=== PATIENT | female | born 1960 | race Caucasian/White ===

== ENCOUNTER 2022-11-24 10:23 | Day surgery (SDC) | payer BC ==
[2022-11-24] MEDS ORDERED: Ringers Lactate 1,000 ML IV ONE (10:45)
[2022-11-24] MEDS ORDERED: propofoL 200 MG/20 ML VIAL IV ONE ×3 (12:14→12:45)
[2022-11-24] MEDS ORDERED: LIDOCAINE 2% MPF 5 ML VIAL ONE (12:15)
[2022-11-24] MEDS ORDERED: MIDAZOLAM HCL 2 MG/2 ML INJ ONE (12:39)
[2022-11-24] MEDS ORDERED: LIDOCAINE 1% MPF 5 ML VIAL ONE (12:45)
[2022-11-24 14:56] VITALS: O2SAT 100
[2022-11-24 14:57] VITALS: BP 148/98; TEMP 98.1
== END 2022-11-24 13:45 | disposition home or self-care (01) ==
LOC: OR 10:23
PROVIDERS: ATTEND Surgery
PROC: 0DBM8ZX Excision of Descending Colon, Via Natural or Artificial Opening Endoscopic, Diagnostic (ICD-10-PCS; principal; 2022-11-24 12:00)
DX: Z12.11 Encounter for screening for malignant neoplasm of colon (principal); K63.5 Polyp of colon; K64.8 Other hemorrhoids
CPT/HCPCS: 82947; 88305; J2001; J2250; J2704; J7120

== ENCOUNTER 2023-12-10 10:33 | Day surgery (SDC) | payer BC ==
[2023-12-05 15:19] LABS: Absolute Eosinophils 0.2 K/uL (0-0.5); Absolute Lymphocytes (CBC) 3.7 K/uL (0.7-4.9); Absolute Monocytes 0.9 K/uL (0.1-1.3); Basophils % 0.5 % (0-1.3); Eosinophils % 1.9 % (0-4.4); Hematocrit 39.8 % (36.0-45.0); Hemoglobin 13.9 g/dL (12.0-15.0); Lymphocytes % 42.3 % (15.3-44.8); MCH 31.9 pg (27.0-35.0); MCHC 34.9 g/dL (32.0-36.0); MCV 91.6 fL (80-100); MPV 7.4 fL (7.6-11.3); Monocytes % 9.7 % (3.3-12.3); Neutrophils % 45.6 % (41.7-73.7); Platelets 277 thou/uL (152-406); RBC Red Blood Cell Count 4.35 M/uL (3.86-4.86)
[2023-12-05 15:37] LABS: Albumin 3.8 g/dL (3.4-5.0); Bilirubin Total 0.5 mg/dL (0.2-1.0); Globulin 3.7 g/dL (2.3-3.5); Protein, Total 7.5 g/dL (6.4-8.2)
--- NOTE | 2023-12-06 14:25 | EKG ---
Test Date: 2023-12-05 Test Time: 14:58:03 Harbour Master: CATALINA MEASUREMENT RESULTS: Intervals: Rate: 80 VA: 130 QRSD: 76 QT: 388 QTc: 447 [place]: P: 78 VA: 130 QRS: 53 T: 69 INTERPRETIVE STATEMENTS: Normal sinus rhythm Low voltage QRS ST abnormality, possible digitalis effect Abnormal ECG No previous ECG available for comparison Electronically Signed On 12-06-23 14:23:09 CDT by Anup Robert
[2023-12-10] MEDS: Ringers Lactate 1,000 ML IV ONE (11:05)
[2023-12-10] MEDS ORDERED: LIDOCAINE 2% MPF 5 ML VIAL ONE (11:27)
[2023-12-10] MEDS ORDERED: MIDAZOLAM HCL 2 MG/2 ML INJ ONE (11:27)
[2023-12-10] MEDS ORDERED: ROCURONIUM 50 MG/5 ML VIAL IV ONE (11:27)
[2023-12-10] MEDS ORDERED: propofoL 200 MG/20 ML VIAL IV ONE (11:27)
[2023-12-10] MEDS ORDERED: ONDANSETRON 4 MG/2 ML VIAL ONE (11:27)
[2023-12-10] MEDS ORDERED: FENTANYL CITR 100 MCG/2 ML ONE ×2 (11:27→12:42)
[2023-12-10] MEDS ORDERED: dexAMETHasone 10 MG/ML VIAL ONE (12:17)
[2023-12-10] MEDS: CEFOXITIN SODIUM 2 GM/VIAL ONE (12:19)
[2023-12-10] MEDS ORDERED: EPHEDRINE SULF 50 MG/ML VIAL ONE (12:24)
[2023-12-10] MEDS: BUPIVACAINE 0.25% PF 30 ML VIAL ONE (12:33)
[2023-12-10] MEDS ORDERED: NEOSTIGMINE 1 MG/ML -10 ML VIAL ONE (13:11)
--- NOTE | 2023-12-10 13:18 | P.OP ---
Preoperative diagnosis: Cholecystitis Postoperative diagnosis: Cholecystitis Primary procedure: Laparoscopic Cholecystectomy with ICG Anesthesia: GETA + Local Estimated blood loss: <5cc Specimen: Gallbladder Findings: Cholecystitis Complications: None Transferred to: Recovery Room Condition: Good
[2023-12-10] MEDS: FENTANYL CITR 100 MCG/2 ML ONE (13:48)
[2023-12-10] MEDS: ONDANSETRON 4 MG/2 ML VIAL ONE (13:50)
[2023-12-10] MEDS: PROMETHAZINE INJ 25 MG/ML AMP ONE (14:01)
--- NOTE | 2023-12-10 14:24 | OP ---
Date of Procedure: 12/10/2023 Surgeon: Rinku Fischer MD, Preoperative Diagnosis: Cholecystitis. Postoperative Diagnosis: Cholecystitis. Procedure Performed: Laparoscopic cholecystectomy with indocyanine green cholangiography. Anesthesia: General endotracheal plus local with 0.25% Marcaine. Estimated Blood Loss: Less than 5 cc. Specimen: Gallbladder. Findings: Cholecystitis. Complication: None. Disposition: Patient transferred to recovery room in good condition. Procedure In Detail: After informed consent was obtained, patient was brought to the operating room, prepped and draped in the usual sterile fashion after adequate anesthesia was achieved, in the supra umbilical area anesthetized with 0.25% Marcaine and sharply incised and a 5 mm 0 degree optical troca r was introduced in the abdomen without incident or complication. Insufflation was obtained to 15 mm Hg, at this time. There was no injury to vital structures upon entering the abdomen. Two additional trocars were placed, one in the epigastrium and one in the right upper quadrant. Both of these were similarly anesthetized, sharply incised. 5 mm trocar was placed under direct visualization without incident or complication. The umbilical trocar was then upsized to a 12 mm under direct visualizatio n without incident or complication. The patient positioned head up right-side up position. Ratchete d grasper was used to grasp the patient's gallbladder, placed toward the patient's right shoulder. D issection continued down the Cassi pouch of the gallbladder, 2 structures were identified, both cy stic duct and cystic artery. Critical view of safety was obtained, at this point. I performed the i ndocyanine green cholangiography to confirm the anatomic structures as described above. Cystic duct, common duct junction was far away from the proposed ligation site. At this point, these structures skeletonized completely and the critical view of safety was maintained, at this point. I then placed double titanium clips on the proximal side, singly on the distal side of both cystic duct and cystic artery. These structures were ligated at this point. There was a slightly aberrant course of the c ystic artery, but it was easily visualized at this point. After these structures were ligated, the g allbladder was removed from the hepatic fossa without incident or complication using electrocautery. The gallbladder was placed in EndoCatch bag, removed through the umbilical trocar and sent off for p athologic examination. The area was copiously irrigated, at this point. Indocyanine green cholangio graphy once again performed showed no evidence of bleeding and/or leakage of bile. Clips were found to be in good anatomic position at the end of the procedure. The area was copiously irrigated, sucti oned out, completely dry. The patient was positioned back in neutral position. Remaining effluent w as suctioned out. The 12 mm trocar site was then closed using Shay-Jaguar suture passer with 0 V icryl in an interrupted fashion with good approximation of tissue. The abdomen was desufflated under direct visualization without incident or complication. All remainder of trocars were removed. All s kin incisions were then copiously irrigated and closed with a 4-0 Monocryl in a running fashion, Derm abond was placed over top. The patient tolerated the procedure without incident or complication. Tr ansferred to PACU in good condition. All counts were correct at the end of the case. RAHAT/MALICK Voice ID: [id number] Report ID: [id number]
[2023-12-10 15:07] VITALS: BP 108/72; TEMP 97.3; O2SAT 96
== END 2023-12-10 15:05 | disposition home or self-care (01) ==
LOC: OR 10:33
PROVIDERS: ATTEND Surgery
PROC: BF50200 Other Imaging of Bile Ducts using Fluorescing Agent, Indocyanine Green Dye, Intraoperative (ICD-10-PCS; 2023-12-10)
PROC: 0FT44ZZ Resection of Gallbladder, Percutaneous Endoscopic Approach (ICD-10-PCS; principal; 2023-12-10 12:00)
DX: K80.10 Calculus of gallbladder with chronic cholecystitis without obstruction (principal); I10 Essential (primary) hypertension; J45.909 Unspecified asthma, uncomplicated
CPT/HCPCS: 93005; 85025; 36415; 88304; 80053; 47563; J2550; J2704; J2710; J2001; J2250; J3010 ×3; J1100; J0694; J2405 ×2; J7120

== ENCOUNTER 2024-08-29 11:27 | Day surgery (SDC) | payer BC, OTHER ==
[2024-08-28 09:57] LABS: Absolute Eosinophils 0.1 K/uL (0-0.5); Absolute Lymphocytes (CBC) 2.5 K/uL (0.7-4.9); Absolute Monocytes 0.4 K/uL (0.1-1.3); Absolute Neutrophil 2.5 K/uL (1.8-8.0); Basophils % 0.5 % (0-1.3); Eosinophils % 1.5 % (0-4.4); Hematocrit 40.9 % (36.0-45.0); Hemoglobin 13.6 g/dL (12.0-15.0); Lymphocytes % 45.4 % (15.3-44.8); MCH 31.1 pg (27.0-35.0); MCHC 33.1 g/dL (32.0-36.0); MCV 93.7 fL (80-100); Monocytes % 6.8 % (3.3-12.3); Neutrophils % 45.8 % (41.7-73.7); Platelets 261 thou/uL (152-406); RBC Red Blood Cell Count 4.36 M/uL (3.86-4.86); Red Cell Distribution Width 12.6 % (12.1-15.2)
[2024-08-28 10:07] LABS: Anion Gap 7.2 mEq/L (5.0-15.0); Potassium 4.2 mEq/L (3.5-5.1)
[2024-08-29] MEDS ORDERED: Ringers Lactate 1,000 ML IV ONE (11:30)
[2024-08-29] MEDS ORDERED: LIDOCAINE 2% MPF 5 ML VIAL ONE (11:40)
[2024-08-29] MEDS ORDERED: ONDANSETRON 4 MG/2 ML VIAL ONE (11:40)
[2024-08-29] MEDS ORDERED: MIDAZOLAM HCL 2 MG/2 ML INJ ONE (11:40)
[2024-08-29] MEDS ORDERED: propofoL 200 MG/20 ML VIAL IV ONE (11:40)
[2024-08-29] MEDS ORDERED: FENTANYL CITR 100 MCG/2 ML ONE (11:40)
[2024-08-29] MEDS ORDERED: ROCURONIUM 50 MG/5 ML VIAL IV ONE (11:40)
[2024-08-29] MEDS ORDERED: SUGAMMADEX SODIUM 200 MG/2 ML VIAL IV ONE (11:54)
[2024-08-29] MEDS ORDERED: HYDROMORPHONE HCL 1 MG/ML INJ ONE (11:54)
[2024-08-29] MEDS ORDERED: dexAMETHasone 10 MG/ML VIAL ONE (12:34)
[2024-08-29] MEDS: CEFAZOLIN SODIUM 2 GM/VIAL ONE (12:43)
--- NOTE | 2024-08-29 13:27 | P.OP ---
Preoperative diagnosis: Ventral Incisional Periumbilical Hernia Postoperative diagnosis: Ventral Incisional Periumbilical Hernia Primary procedure: Laparoscopic Ventral Hernia Repair with mesh Anesthesia: GETA + Local Estimated blood loss: <5cc Specimen: none Findings: Ventral Incisional Periumbilical Hernia ~ 3.5cm Complications: None Implants: Bard Ventralite ST 11.4cm Round, Sorbafix x 45 Transferred to: Recovery Room Condition: Good
[2024-08-29] MEDS: ONDANSETRON 4 MG/2 ML VIAL ONE (13:44)
[2024-08-29] MEDS: HYDROMORPHONE HCL 1 MG/ML INJ ONE ×2 (13:45→13:55)
[2024-08-29] MEDS ORDERED: LIDOCAINE HCL/EPINEPHRINE 20 ML MDV ONE (14:20)
[2024-08-29] MEDS: FENTANYL CITR 100 MCG/2 ML ONE (14:20)
[2024-08-29] MEDS: HYDROCODONE/APAP 7.5/325 MG TAB ONE (15:02)
[2024-08-29 15:21] VITALS: BP 111/61; TEMP 97.6; O2SAT 100
--- NOTE | 2024-08-29 15:47 | EKG ---
Test Date: 2024-08-28 Test Time: 09:53:49 Rocket Motor Mechanic: CATALINA MEASUREMENT RESULTS: Intervals: Rate: 76 NH: 134 QRSD: 76 QT: 390 QTc: 438 [place]: P: 44 NH: 134 QRS: 38 T: 64 INTERPRETIVE STATEMENTS: Normal sinus rhythm Low voltage QRS Borderline ECG Compared to ECG 12/05/2023 14:58:03 ST (T wave) deviation no longer present Electronically Signed On 08-29-24 15:46:03 CHUCKING AND SAWING MACHINE OPERATOR by Augustine Andre
--- NOTE | 2024-08-30 00:07 | OP ---
Date of Procedure: 08/29/2024 Surgeon: Rinku Fischer MD, Preoperative Diagnosis: Ventral incisional periumbilical hernia. Postoperative Diagnosis: Ventral incisional periumbilical hernia. Procedure: Laparoscopic ventral hernia repair with mesh. Anesthesia: General endotracheal plus local, 1% lidocaine. Estimated Blood Loss: Less than 5 cc. Specimens: None. Findings: Ventral incisional periumbilical hernia, approximately 3.5 cm in size. Complications: None. Implants: Bard Ventralight ST mesh with Echo Positioning System, 11.4 cm round mesh utilized. Sorba Fix absorbable fixation tacks x45. Disposition: The patient was transferred to recovery room in good condition. Procedure In Detail: After informed consent was obtained, the patient was brought to the operating r oom, prepped in usual sterile fashion. After adequate anesthesia was achieved, anesthetized an area of the supraumbilical position down to subcutaneous tissues. 5 mm 0-degree optical trocar was prepar ed. I anesthetized an area in the left upper quadrant for insertion of the first trocar. The first trocar was placed in left upper quadrant under direct vision without incident or complication. Insuf flation was obtained to 15 mmHg at this time. There was no injury to vital structures upon entry int o the abdomen. At this point, I anesthetized an area of the left abdominal wall in the mid abdomen. Incision was made, a 12 mm trocar was placed under direct vision without incident or complication. At this point, I used a LigaSure device to take down the periumbilical tissue, which was ventral inci sional hernia, approximately 3.5 cm in the periumbilical region. I reduced the omentum from this are a using the LigaSure and bipolar cautery, ultimately removing the hernia defect and placing the oment um in their normal anatomic positions. At this point, I closed and imbricated the hernia sac using a 0 V-Loc suture. In a running fashion, imbricating the hernia sac with good approximation of the tis sues. When the defect was completely closed, I then deployed 11.[address] mesh with E cho Positioning System in the center portion of the defect. I then deployed SorbaFix absorbable fixa tion tacks to secure the anterior abdominal wall. At this point, I removed the balloon deployment sy stem, found it to be intact on the back table. I then deployed a total of 45 SorbaFix absorbable fix ation screws to the anterior abdominal wall with good approximation of the mesh to the abdominal wall without hemostatic maneuvers being required. I then closed the 12 mm trocar site using Lalito anguiano suture passer with an 0 Vicryl in interrupted fashion with good approximation of tissues. The ey e was desufflated under direct vision without incident or complication. All skin incisions were then copiously irrigated and closed with a 4-0 Monocryl in a running fashion. Dermabond was placed over top. The patient tolerated procedure without incident or complication, and transferred to PACU in go od condition. All counts were correct at the end of the case. RAHAT/MALICK Voice ID: [id number] Report ID: [id number]
== END 2024-08-29 15:21 | disposition home or self-care (01) ==
LOC: OR 11:27
PROVIDERS: ATTEND Surgery
PROC: 0WUF4JZ Supplement Abdominal Wall with Synthetic Substitute, Percutaneous Endoscopic Approach (ICD-10-PCS; principal; 2024-08-29 13:30)
DX: K43.2 Incisional hernia without obstruction or gangrene (principal); K42.9 Umbilical hernia without obstruction or gangrene
CPT/HCPCS: 93005; 85025; 80048; 36415; 49593; J2704; J2003; J2250; J3010 ×2; J1100; J1171 ×3; J2405 ×2; J7120; C1781